=== PATIENT | male | born 1970 | race Hispanic/Latino ===

== ENCOUNTER 2017-08-12 17:34 | Observation (INO) | payer SELFPAY ==
[2017-08-12 18:16] LABS: #Basophils 0.2 thou/uL (0.0-0.2); #Lymphocytes 3.4 thou/uL (1.20-3.40); #Monocytes 0.6 thou/uL (0.11-0.59); #Neutrophils 6.6 thou/uL (1.40-6.50); %Basophils 1.8 % (0.0-1.0); %Eosinophils 0.4 % (0.0-10.0); %Lymphocytes 31.4 % (21.0-51.0); %Monocytes 5.4 % (0.0-10.0); Hemoglobin 15.3 g/dL (14.0-18.0); Mean Corpuscular HGB CONC 33.5 g/dL (32.0-36.0); Mean Corpuscular Hemoglobin 27.8 pg (27.0-31.0); Mean Platelet Volume 8.7 fL (7.4-10.4); Platelet Count 275 thou/uL (130-400); RBC Distribution Width 11.7 % (11.5-14.5); Red Blood Cell (RBC) Count 5.51 mill/uL (4.70-6.10); White Blood Cell (WBC) Count 10.8 thou/uL (4.8-10.8)
[2017-08-12 18:32] LABS: ALT (SGPT) 10 U/L (8-55); AST (SGOT) 23 U/L (5-34); Albumin 4.6 g/dL (3.5-5.0); Alkaline Phosphatase 61 U/L (40-150); Anion Gap 17 mmol/L (10-20); BUN (Urea Nitrogen) 14 mg/dL (8.9-20.6); Bilirubin, Total 0.7 mg/dL (0.2-1.2); CKMB 3.9 ng/mL (0-6.6); Calc. Creatinine Clearance 0 mL/min (70-130); Calcium 9.6 mg/dL (7.8-10.44); Carbon Dioxide 24 mmol/L (22-29); Chloride 103 mmol/L (98-107); Estimated GFR-MDRD 84; Globulin 3.2 g/dL (2.4-3.5); Glucose 124 mg/dL (70-105); Lipase 23 U/L (8-78); Potassium 3.6 mmol/L (3.5-5.1); Protein, Total 7.8 g/dL (6.0-8.3); Sodium 140 mmol/L (136-145); Troponin I 0.042 ng/mL (< 0.028)
[2017-08-12] MEDS ORDERED: Lorazepam 1 MG TAB ONE (18:37)
[2017-08-12] MEDS ORDERED: Metoprolol Tartrate 5 MG/5 ML VIAL ONE (18:41)
--- NOTE | 2017-08-12 18:51 | RAD ---
SINGLE VIEW OF THE CHEST 08/12/17 COMPARISON: None. HISTORY: Right upper quadrant abdominal pain for the past three weeks. Patient is a diabetic. FINDINGS: Single view of the chest shows a normal sized cardiomediastinal silhouette. There is no evidence of c onsolidation, mass, or pleural effusion. The bones are unremarkable. IMPRESSION: No evidence of acute cardiopulmonary disease. POS: [facility]
[2017-08-12 19:05] LABS: Acetaminophen Less than 6.0 mcg/mL (10.0-30.0); Alcohol Less than 10 mg/dL (Less than 10); Salicylate Less than 8.0 mg/dL (15.0-30.0)
[2017-08-12 19:07] LABS: Bilirubin Negative (Negative); Blood, Urine Negative (Negative); Clarity Clear (Clear); Glucose, Urine (Dipstick) Negative (Negative); Leukocyte Negative (Negative); Nitrite Negative (Negative); Protein, Urine (Dipstick) Negative (Neg-Trace); Specific Gravity, Urine 1.015 (1.005-1.030); Urobilinogen 0.2 mg/dL (0.2-1.0); pH, Urine 8.5 (5.0-9.0)
[2017-08-12 19:18] LABS: Amphetamine Not Detected (NotDetected); Barbiturates Screen Not Detected (NotDetected); Benzodiazepine Screen Not Detected (NotDetected); Cocaine Metabolite Screen Not Detected (NotDetected); Medtox Control Line Valid? VALID (VALID); Methadone Not Detected (NotDetected); Methamphetamine Detected (NotDetected); Opiate Screen Not Detected (NotDetected); Oxycodone Screen Not Detected (NotDetected); Phencyclidine (PCP) Not Detected (NotDetected); THC/Cannabinoid Screen Not Detected (NotDetected); Tricyclic Screen Not Detected (NotDetected)
[2017-08-12] MEDS ORDERED: Ondansetron HCl/PF 4 MG/2 ML Vial IVP PRN (20:23)
[2017-08-12] MEDS ORDERED: Ondansetron ODT 4 MG TAB SL PRN (20:23)
[2017-08-12] MEDS ORDERED: Acetaminophen 325 MG TAB PO PRN (20:23)
[2017-08-12 23:34] LABS: Troponin I 0.042 ng/mL (< 0.028)
[2017-08-13] MEDS ORDERED: cloNIDine 0.1 MG TAB PO PRN (00:28)
[2017-08-13] MEDS ORDERED: hydrALAZINE 20 MG/ML VIAL SLOW IVP PRN (00:28)
[2017-08-13] MEDS ORDERED: Ondansetron HCl/PF 4 MG/2 ML Vial IVP PRN (00:28)
[2017-08-13] MEDS ORDERED: Dextrose 50% Abboject 50 ML SYRINGE SLOW IVP PRN (00:28)
[2017-08-13] MEDS ORDERED: Acetaminophen 500 MG TAB PO PRN (00:28)
[2017-08-13] MEDS ORDERED: Dextrose 5% in Water 1,000 ML IV PRN (00:28)
[2017-08-13] MEDS ORDERED: HumaLOG 300 UNITS/3 ML VIAL SC PRN ×2 (00:28)
[2017-08-13] MEDS ORDERED: Ondansetron ODT 4 MG TAB PO PRN (00:28)
[2017-08-13 02:21] LABS: Troponin I 0.044 ng/mL (< 0.028)
--- NOTE | 2017-08-13 04:29 | HP ---
DATE OF ADMISSION: 08/13/2017 PRIMARY CARE PHYSICIAN: Nicci cuenca. CHIEF COMPLAINT: Abdominal pain. HISTORY OF PRESENT ILLNESS: This is a 47-year-old male who presents to [facility] Emergency Department after being referred from a local STD clinic. The patient states that he was seen at the STD clinic locally for dysuria and apparently given a clean bill of health in that regard. The patient states that the healthcare provider was concerned with his abdominal compl aints and stated he needed to be seen at the emergency room. The patient actually complaining of rig ht upper quadrant abdominal pain over the last 3 weeks, worse with movement, turning, twisting or wal elliott. The patient denied any specific direct injury or trauma. The patient does admit with difficul ties of constipation. Last bowel movement in the last 48 hours; however, he does root constipation on a regular basis. The patient admits to some dysuria which he was evaluated at the STD clinic as stated previously. The patient admits to some associated nausea, but no gastroesophageal reflux, his tory of gastric ulcers or postprandial pain. The patient denied taking any specific home remedies or over the counter medications for the pain. The patient does state that the pain was initially 7/10, currently 2/10. 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 The patient does admit to history of d iamegha on metformin over the last 6-7 years. The patient also takes antihypertensive medication. T he patient admits to alcohol use as well as smokeless tobacco use. The patient also admitted to coca ine and methamphetamine use. In the emergency room, patient underwent general evaluation including c hest imaging showing no acute process. Screening metabolic survey showed methamphetamines on urine d rug screen and mildly elevated troponin I of 0.042. The patient received IV Lopressor after initial blood pressure in the emergency room was 184/109 as well as aspirin, Ativan, and 1 liter of normal sa line. The patient was referred to the Hospitalist Service for evaluation. PAST MEDICAL HISTORY: 1. Hypertension. 2. Diabetes mellitus type 2 on metformin. 3. Smokeless tobacco use. 4. Cocaine and methamphetamine use. 5. Constipation. PAST SURGICAL HISTORY: Reviewed and negative. CURRENT MEDICATIONS: 1. Metformin 500 mg p.o. b.i.d. 2. Norvasc 10 mg p.o. daily. 3. Lisinopril 20 mg p.o. at bedtime. ALLERGIES: No known drug allergies. FAMILY HISTORY: Positive for diabetes mellitus and hypertension. SOCIAL HISTORY: The patient is and resides in [place], [place]. Currently on contract in the [employer]. Admits to smokeless tobacco use daily. Alcohol use socially. Admits to coca ine and methamphetamine use. REVIEW OF SYSTEMS: The following complete review of systems was negative, unless otherwise mentioned in the HPI or below: Constitutional: Weight loss or gain, ability to conduct usual activities. Skin: Rash, itching. Eyes: Double vision, pain. ENT/Mouth: Nose bleeding, neck stiffness, pain, tenderness. Cardiovascular: Palpitations, dyspnea on exertion, orthopnea. Respiratory: Shortness of breath, wheezing, cough, hemoptysis, fever or night sweats. Gastrointestinal: Poor appetite, abdominal pain, heartburn, nausea, vomiting, constipation, or diarr hea. Genitourinary: Urgency, frequency, dysuria, nocturia. Musculoskeletal: Pain, swelling. Neurologic/Psychiatric: Anxiety, depression. Allergy/Immunologic: Skin rash, bleeding tendency. Otherwise negative except as stated per HPI. PHYSICAL EXAMINATION: VITAL SIGNS: Currently, blood pressure 164/98, pulse 86, respiratory rate 16, temperature 97.5 degre es Fahrenheit, O2 saturation 98% on room air. GENERAL APPEARANCE: This is a 47-year-old male, alert and oriented x3, pleasant, conversant , in no acute distress. HEENT: Pupils are equal, round, and reactive to light and accommodation. Extraocular muscles are in tact. No scleral icterus, no conjunctival injection. Nares patent. OP is clear. Teeth in fair rep air. NECK: Supple, no cervical adenopathy, no thyromegaly, no carotid bruits, no JVD appreciated. Cervic al spine with full active and passive range of motion. No meningeal signs appreciated. CHEST: Lungs are clear to auscultation bilaterally. CARDIOVASCULAR: S1 and S2, without noted murmur. ABDOMEN: Rounded, soft with mild tenderness in the right upper quadrant. No rebound or guarding alireza reciated. No palpable mass. EXTREMITIES: Warm and dry with good turgor. No clubbing, cyanosis or asymmetric edema appreciated. Pulses palpable distally at the dorsalis pedis, posterior tibial, and popliteal arteries bilaterally . Capillary refill less than 2 seconds. NEUROLOGIC: Cranial nerves II-XII are grossly intact. No focal or lateralizing signs appreciated. PERTINENT LABORATORY DATA AND X-RAY FINDINGS: Complete metabolic profile within normal limits. Trop onin I ranged between 0.042 x2. Lipase 23. CBC showed white blood cell count 10.8, hemoglobin 15, h ematocrit 46, platelet count 275 with 61% neutrophils. Urinalysis showed trace ketones. Urine drug screen positive for methamphetamines. Plasma alcohol level less than 10. Portable chest x-ray dated 08/12/2017 showed no acute cardiopulmonary process. EKG dated 08/12/2017 by my interpretation shows sinus tachycardia with heart rates in the low 110s. Normal R-wave progres sharee noted in the precordial leads. Normal axis. T-wave inversion in leads V5 and V6. ASSESSMENT AND PLAN: 1. Right upper quadrant abdominal pain. The patient will be observed on the telemetry unit. Exact etiology unclear. We will obtain right upper quadrant ultrasound to assess biliary tree and gallblad jayce. No enzymatic elevation on screening metabolic survey. Continue supportive management. 2. Elevated troponin I. We will obtain a third set to assess trend. T-wave inversion noted in lead s V5 and V6; however, age indeterminate. We will consider Cardiology evaluation. Continue aspirin 8 1 mg p.o. daily. 3. Hypertension. Resume home amlodipine and lisinopril and monitor clinical response. 4. Diabetes mellitus type 2. Resume metformin 500 mg p.o. b.i.d. Insulin sliding scale for reflexi ve coverage. Accu-Cheks before meals and at bedtime. ADA diet. 5. Polysubstance use. We will offer resources regarding cessation programs on an outpatient basis. 6. Prophylaxis. Sequential compression devices while in bed. Pepcid 20 mg p.o. b.i.d. 7. Code status is FULL. Surrogate medical decision maker is patient's spouse.
[2017-08-13 05:35] LABS: ALT (SGPT) 10 U/L (8-55); AST (SGOT) 20 U/L (5-34); Albumin 4.2 g/dL (3.5-5.0); Alkaline Phosphatase 60 U/L (40-150); Anion Gap 10 mmol/L (10-20); BUN (Urea Nitrogen) 13 mg/dL (8.9-20.6); Bilirubin, Total 0.9 mg/dL (0.2-1.2); Calc. Creatinine Clearance 105 mL/min (70-130); Calcium 9.4 mg/dL (7.8-10.44); Carbon Dioxide 27 mmol/L (22-29); Chloride 105 mmol/L (98-107); Estimated GFR-MDRD 83; Globulin 3.2 g/dL (2.4-3.5); Glucose 90 mg/dL (70-105); Potassium 3.7 mmol/L (3.5-5.1); Protein, Total 7.4 g/dL (6.0-8.3); Sodium 138 mmol/L (136-145)
[2017-08-13 06:31] LABS: Hemoglobin 16.1 g/dL (14.0-18.0); Mean Corpuscular HGB CONC 33.4 g/dL (32.0-36.0); Mean Corpuscular Hemoglobin 29.1 pg (27.0-31.0); Mean Corpuscular Volume 87.4 fl (80.0-94.0); Mean Platelet Volume 7.5 fL (7.4-10.4); Platelet Count 292 thou/uL (130-400); RBC Distribution Width 12.3 % (11.5-14.5); Red Blood Cell (RBC) Count 5.53 mill/uL (4.70-6.10); White Blood Cell (WBC) Count 11.7 thou/uL (4.8-10.8)
--- NOTE | 2017-08-13 07:52 | ULT ---
GALLBLADDER ULTRASOUND: Date: 08/13/17 HISTORY: Right upper quadrant pain. COMPARISON: None. TECHNIQUE: Utilizing a multihertz transducer, sonographic imaging of the right upper quadrant was performed in t he longitudinal and transverse plane. FINDINGS/IMPRESSION: The head of the pancreas is grossly unremarkable. The remainder of the pancreas is obscured by bowel gas. Hepatic parenchyma has a normal echotexture. No hepatic masses or intrahepatic biliary dilatation. Co ntour of the hepatic margin is maintained. Main portal vein is patent. Appropriate direction of flow. Right kidney has a normal cortical echotexture. No hydronephrosis. Right kidney measures 4.9 x 4.3 x 11.1 cm. No sonographic evidence of cholelithiasis, gallbladder wall thickening, or pericholecystic fluid. Neg ative Self's sign. Common bile duct diameter is 0.4 cm. IMPRESSION: Unremarkable right upper quadrant ultrasound. POS: [facility]
[2017-08-13] MEDS: Aspirin 81 mg Enteric Coated Tablet PO SCH (08:34)
[2017-08-13] MEDS: Amlodipine 10 MG TAB PO SCH (08:34)
[2017-08-13] MEDS: metFORMIN 500 MG TAB PO SCH ×2 (08:34→21:25)
[2017-08-13] MEDS: Famotidine 20 MG TAB PO SCH ×2 (08:34→21:25)
[2017-08-13] MEDS: Docusate 100 MG CAP PO SCH ×2 (08:34→21:25)
[2017-08-13 09:27] LABS: Band 1 % (5-11); Lymphocytes 41 % (21-51); MDiff Complete? YES; Monocytes 4 % (0-10); Neutrophil 54 % (42-75)
--- NOTE | 2017-08-13 09:50 | CON ---
DATE OF CONSULTATION: 08/13/2017 HISTORY OF PRESENT ILLNESS: The patient is a 47-year-old gentleman who presents for evaluation of abdominal discomfort. The patient has no previous cardiac history. The patient for the past three weeks was having right lower quadrant pain. He states it seems to be worse when he takes a deep breath. 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 He presented to the emergency room for further evaluation. The patient was found to have a normal electrocardiogram. The patient denies having any chest discomfort. He reports that he can do significant physical exertion without dyspnea. PAST MEDICAL HISTORY: 1. Hypertension. 2. Diabetes mellitus. PAST SURGICAL HISTORY: None. MEDICATIONS: Lisinopril 20 daily, Norvasc 10 daily, amd metformin 500 b.i.d. ALLERGIES: None. FAMILY HISTORY: No strong family history of coronary artery disease. SOCIAL HISTORY: He is a nonsmoker. The patient lives in [place]. He denies to me any use of cocaine or illicit drugs. REVIEW OF SYSTEMS: Ten-point systems is noticeable for back pain, but otherwise unremarkable. PHYSICAL EXAMINATION: GENERAL: Well-developed gentleman in no acute distress. VITAL SIGNS: Blood pressure 129/90. NECK: Neck with no jugular vein distention. LUNGS: Clear to auscultation. HEART: Regular rate and rhythm, normal S1 and S2. ABDOMEN: Nondistended with mild right lower quadrant pain. EXTREMITIES: Showed no edema. SKIN: Warm and dry. NEUROLOGIC: Nonfocal. VASCULAR: Radial pulses 2+. LABORATORY: White blood cell count 11.7, hemoglobin 16.1, hematocrit 48.1, platelets 292. Sodium 138, potassium 3.7, chloride 105, bicarbonate 27, BUN 13 , creatinine 0.898, troponin was 0.044. His toxicology was positive for methamphetamines. EKG revealed normal sinus rhythm with a T-wave abnormality suggestive of lateral ischemia. IMPRESSION: 1. Abdominal discomfort. 2. Diabetes mellitus. 3. Hypertension. 4. Possible illicit drug use. 5. Abnormal electrocardiogram. This gentleman presents with abdominal pain. He was found to have an abnormal electrocardiogram. The patient has multiple cardiac risk factors. We will check the patient's echocardiogram. Outpatient follow up including stress testing will be recommended. Would avoid the use of any illicit drugs as I explained to the patient. Would add lipid lowering medication and an aspirin since he is diabetic and has multiple risk factors. We will follow this patient with you through his hospitalization. ROSALBA
[2017-08-13 13:09] VITALS: BMI 26.2
[2017-08-13] MEDS: Lisinopril 20 MG TAB PO SCH (21:25)
[2017-08-13] MEDS: Atorvastatin Calcium 40 MG TAB PO SCH (21:26)
[2017-08-14] MEDS ORDERED: Iopamidol 370 76% 50 ML VIAL FS ONE (08:08)
[2017-08-14] MEDS: Amlodipine 10 MG TAB PO SCH (08:32)
[2017-08-14] MEDS: Famotidine 20 MG TAB PO SCH ×2 (08:32→20:28)
[2017-08-14] MEDS: metFORMIN 500 MG TAB PO SCH ×2 (08:32→20:27)
[2017-08-14] MEDS: Docusate 100 MG CAP PO SCH ×2 (08:32→20:27)
[2017-08-14] MEDS: Aspirin 81 mg Enteric Coated Tablet PO SCH (08:32)
--- NOTE | 2017-08-14 14:08 | PDOC.PN ---
- Subjective Encounter Start Date: 08/14/17 Encounter Start Time: 14:07 Patient seen and examined, states he feels well today, no new issues, admits to some discomfort in right lower quadrant. Family at bedside, all questions answered. - Objective Resuscitation Status: Resuscitation Status FULL:Full Resuscitation Vital Signs & Weight: Vital Signs (12 hours) Temp Pulse Resp BP Pulse Ox 08/14/17 12:01 98.2 F 57 L 18 107/73 98 08/14/17 08:29 98 F 51 L 16 109/76 99 08/14/17 08:03 98 F 51 L 16 08/14/17 04:00 97.9 F 55 L 12 109/70 99 Weight Admit Weight 172 lb 9.6 oz Weight 173 lb 12.8 oz I&O: 08/13/17 08/14/17 08/15/17 06:59 06:59 06:59 Intake Total 240 840 Output Total 450 Balance -210 840 Result Diagrams: 08/13/17 04:13 08/13/17 04:13 Additional Labs: Accuchecks 08/13/17 08/13/17 20:46 16:02 POC Glucose 150 H 125 H Phys Exam - Physical Examination Constitutional: NAD HEENT: PERRLA, moist MMs, sclera anicteric Neck: no nodes, no JVD, supple Respiratory: no wheezing, no rales, no rhonchi Cardiovascular: RRR, no significant murmur, no rub Gastrointestinal: soft, non-tender, no distention Musculoskeletal: no edema, pulses present Neurological: non-focal, normal sensation Psychiatric: normal affect, A&O x 3 Dx/Plan (1) Abdominal pain Code(s): R10.9 - UNSPECIFIED ABDOMINAL PAIN Status: Acute (2) Chest pain Code(s): R07.9 - CHEST PAIN, UNSPECIFIED Status: Acute (3) Methamphetamine abuse Code(s): F15.10 - OTHER STIMULANT ABUSE, UNCOMPLICATED Status: Acute - Plan * Patient now complaining of abdominal pain and stating that he had fevers earlier prior to coming in * will obtain CT scan with oral contrast * echo pending * DC plans if CT scan is negative and once cleared by cardiology, patient's vital signs are stable and labs normal * case and plan d/w patient and family at length, they understand and agree with this plan
--- NOTE | 2017-08-14 19:08 | CT ---
NONCONTRAST CT OF THE ABDOMEN AND PELVIS 08/14/17 INDICATION: Concern for acute appendicitis, right sided abdominal pain for three weeks with nausea and fever. FINDINGS: Lung bases are clear. Unopacified liver, spleen, pancreas and adrenal glands appear within normal de la cruz its. No renal or ureteral calculus is evident. Normal appendix is seen within the right lower quadrant. The bladder, rectum, and perirectal soft tis sues are unremarkable. There is scattered colonic diverticula involving the colon with a mild amount of retained stool. Scattered degenerative and osteoarthritic changes seen involving the visualized osseous structures. IMPRESSION: 1. Normal appendix. 2. Diverticulosis. POS: [facility]
[2017-08-14] MEDS: Atorvastatin Calcium 40 MG TAB PO SCH (20:27)
[2017-08-14] MEDS: Lisinopril 20 MG TAB PO SCH (20:27)
[2017-08-14] MEDS ORDERED: Polyethylene Glycol 3350 17 GM Packet PO PRN (20:35)
[2017-08-14] MEDS: Senokot S 8.6-50 MG TAB PO SCH (21:15)
[2017-08-15] MEDS ORDERED: Sodium Chloride 0.9% 10 ML ONE (07:41)
[2017-08-15 08:54] VITALS: BP 127/83; TEMP 98.7
[2017-08-15] MEDS: Amlodipine 10 MG TAB PO SCH (08:56)
[2017-08-15] MEDS: metFORMIN 500 MG TAB PO SCH (08:57)
[2017-08-15] MEDS: Famotidine 20 MG TAB PO SCH (08:57)
[2017-08-15] MEDS: Senokot S 8.6-50 MG TAB PO SCH (08:57)
[2017-08-15] MEDS: Aspirin 81 mg Enteric Coated Tablet PO SCH (08:57)
--- NOTE | 2017-08-15 13:01 | DIS ---
DATE OF ADMISSION: 08/13/2017 DATE OF DISCHARGE: 08/15/2017 ADMITTING DIAGNOSES: Chest pain, abdominal pain, hypertension, diabetes mellitus type 2, constipatio n. Drug screen positive for cocaine and methamphetamine. DISCHARGE DIAGNOSES: 1. Chest pain, likely secondary to drug abuse, resolved. 2. Diabetes mellitus type 2, stable. 3. History of drug abuse. Cocaine and methamphetamine positive on urine drug screen. HOSPITAL COURSE: This is a 47-year-old male admitted to the hospital complaining of chest pain and a bdominal pain. The patient was evaluated by Internal Medicine as well as Cardiology. Had an echocar diogram performed as well as an abdominal CT scan performed to rule out any indications for abdominal pain, diverticulitis, diverticulosis and appendicitis was not present. The patient was found to hav e an echocardiogram which was normal with EF of 55%-60%. Patient upon the time of discharge denied a ny nausea, vomiting, diarrhea, constipation, chest pain, fevers, or shortness of breath. He was stanton red by both Internal Medicine and Cardiology medicine for discharge. Patient was to follow up with P CP within 7-10 days for further management and care. DISPOSITION: Home. FOLLOWUP: With PCP in 7-10 days. MEDICATIONS: See MAR. DIET: Low fat, low calorie, high fiber diet. CONDITION: Stable. PROGNOSIS: Good. Activity as tolerated. Highly recommended to stop doing drugs. Case and plan discussed with the patient and at length. They understand and agree with this hao n.
--- NOTE | 2017-08-21 20:49 | EKG ---
Test Reason : Blood Pressure : / mmHG Vent. Rate : 111 BPM Atrial Rate : 111 BPM P-R Int : 112 ms QRS Dur : 078 ms QT Int : 312 ms P-R-T Axes : 046 031 048 degrees QTc Int : 424 ms Sinus tachycardia T wave abnormality, consider lateral ischemia Lateral T invrsion No STEMI Abnormal ECG Confirmed by DARREN ALMONTE, CONSUELO ([id number]), assignment editor JULIAN JOHNSTON ([id number]) on 08/21/2017 8:48:51 PM Referred By: Confirmed By:CONSUELO BANKS MD
== END 2017-08-15 11:16 | disposition home or self-care (01) ==
LOC: SCSER 17:34 → 2NO 18:53 → INTOOBSV 18:53
PROVIDERS: ADMIT Internal Medicine; ATTEND Internal Medicine
DX: R07.9 Chest pain, unspecified (principal); R10.11 Right upper quadrant pain; I10 Essential (primary) hypertension; E11.9 Type 2 diabetes mellitus without complications; K59.00 Constipation, unspecified; F14.10 Cocaine abuse, uncomplicated; F15.10 Other stimulant abuse, uncomplicated; F17.290 Nicotine dependence, other tobacco product, uncomplicated; K57.30 Diverticulosis of large intestine without perforation or abscess without bleeding; Z79.899 Other long term (current) drug therapy; Z79.84 Long term (current) use of oral hypoglycemic drugs
CPT/HCPCS: 36415; 36416; 71045; 74176; 76705; 80053; 80306; 80307; 81003; 82553; 83690; 84484; 85007; 85025; 85027; 93005; 93306; 96361; 96374; A4216; G0378; Q0162